=== PATIENT | female | born 1960 | race Caucasian/White ===

== ENCOUNTER 2022-01-21 16:49 | Emergency (ER) | payer OTHER, SELFPAY ==
--- NOTE | ~2022-01-21 | XR_ITS ---
XR chest 2V DATE: 01/21/2022 18:02 INDICATION: Fever. Recent history of chest cold. TECHNIQUE: 2 views COMPARISON: None FINDINGS: Normal heart size. No hilar or mediastinal enlargement. No pulmonary infiltrate or consolid ation, pleural effusion or pulmonary vascular congestion or pneumothorax. Mild aortic arch calcification and aortic unfolding. Dextroscoliosis and diffuse idiopathic skeletal hyperostosis of the thoracic spine. Degenerative spur ring of the lumbar spine. IMPRESSION: No active cardiopulmonary disease Reviewed, dictated and finalized at location A.
[2022-01-21 17:05] VITALS: BP 115/86; PULSE 111; RESP 24; TEMP 39.4; O2SAT 98
--- NOTE | 2022-01-21 17:44 | ED.URI ---
HPI - URI/Sore Throat General Chief Complaint: Upper Respiratory Infection Stated Complaint: Chills Time Seen by Provider: 01/21/22 17:44 Source: patient, RN notes reviewed and old records reviewed Mode of arrival: ambulatory Limitations: no limitations History of Present Illness HPI Narrative: 61-year-old female who presents to [facility] with complaints of chills, cough, and fevers up to 103F since yesterday evening. Patient has body aches and chills as main complaints. Patient states that she had bronchitis about 2 weeks ago denies any present shortness of breath or any wheezing. Patient also reports some frequency and urgency of urination denies any acute pain with urination or any suprapubic discomfort. Patient reports that she has been taking Tylenol for her fever with last dose at 1600. She reports that she has had flu shot and also has had COVID vaccinations. MD elicited complaint: fever, cough and other (Body aches) Onset (ago): day(s) (Yesterday evening) Consistency: progressively worsening Related Data Home Medications Medication Instructions Recorded Confirmed amitriptyline 25 mg PO DAILY 01/21/22 01/21/22 levothyroxine 112 mcg PO DAILY 01/21/22 01/21/22 simvastatin 20 mg PO DAILY 01/21/22 01/21/22 triamterene-hydrochlorothiazid 1 tablet PO DAILY 01/21/22 01/21/22 Allergies Allergy/AdvReac Type Severity Reaction Status Date / Time codeine AdvReac Intermediate Nausea and Verified 01/21/22 17:31 Vomiting Review of Systems Review of Systems: CONSTITUTIONAL: Positive fever, chills, or sweats. EYES: Denies visual changes, redness, or discharge. ENT: Denies rhinorrhea congestion,no sore throat,positive for otalgia. CARDIOVASCULAR: Denies chest pain, palpitations, or edema. RESPIRATORY: Positive intermittent cough denies dyspnea. GASTROINTESTINAL: Denies abdominal pain, nausea, vomiting, or diarrhea. GENITOURINARY: Denies dysuria or hematuria urinary frequency and urgency SKIN: Denies rash or itching. MUSCULOSKELETAL: Denies back pain, positive for joint pain, and myalgia. NEUROLOGIC: Denies headache, numbness, or weakness. PSYCHIATRIC: Denies anxiety or depression.anxious All systems reviewed & are unremarkable except as noted in HPI and below PMFSH Past Medical History Medical History (Updated 01/22/22 @ 00:00 by Niharika Lopes) Elevated cholesterol Hypertension Hypothyroid Menieres disease Surgical History Surgical History (Updated 01/22/22 @ 09:40 by Corie Spears NP) History of endometrial ablation S/P tonsillectomy and adenoidectomy Social History Social History (Updated 01/21/22 @ 18:01 by Corie Spears NP) Smoking status: Never smoker Substance use: never Living arrangements: with family Gender identity (if verbalized by the patient): Female Comments At time of signature, agree with nursing past medical, surgical, social and family history. There is no relevant family history pertinent to the presenting complaint Exam Narrative: GENERAL: ill-appearing, well-nourished, and in no acute distress. HEAD: Normocephalic, atraumatic. EYES: PERRLA and EOMI. ENT: Nares clear, no rhinorrhea or epistaxis. Mucous membranes moist.TM's normal with good light reflex, throat is red with no lesions or exudates, no tonsils present. NECK: Supple.no lymphadenopathy CHEST: Clear to auscultation. No respiratory distress.harsh cough with no mucous expectoration no wheezing noted, SAO2 98% on room air. HEART: Regular rate and rhythm. No murmur heard. Normal peripheral pulses. ABDOMEN: Soft, nontender, nondistended, normal active bowel sounds.no suprapubic abdominal pain or any CVA tenderness EXTREMITIES: Normal range of motion. No edema.generalized body aches reported SKIN: Warm, dry, no rash. NEURO: No focal deficits. Alert and oriented x3. Course Course Level of Care: Express Care Visit Vital Signs Vital signs: Vital Signs Temperature 39.4 C H 01/21/22 17:05 Pulse Rate 111 H
[2022-01-21 18:20] VITALS: TEMP 37.8
[2022-01-21 19:40] VITALS: TEMP 36.9
--- NOTE | 2022-01-21 19:40 | PC.NURSE ---
PT IS UNABLE TO URINATE FOR A CULTURE SPECIMEN WHILE IN CLINIC. PROVIDER AWARE AND PT INFORMED TO GO DIRECTLY TO THE ED IF WORSENING.
== END 2022-01-21 19:40 | disposition home or self-care (01) ==
PROVIDERS: Emergency Provider Registered Nurse; PCP Internal Medicine Infectious Disease
DX: N39.0 Urinary tract infection, site not specified (principal); E78.00 Pure hypercholesterolemia, unspecified; I10 Essential (primary) hypertension; E03.9 Hypothyroidism, unspecified; H81.09 Meniere's disease, unspecified ear
CPT/HCPCS: 71046; 81003; 87081; 87804; 87880; 99213; G0463